=== PATIENT | female | born 1975 | race Two or more races ===

== ENCOUNTER 2023-04-23 08:38 | Outpatient (CLI) | payer BC ==
[2023-04-23] MEDS ORDERED: Iopamidol 300 61% 100 ML VIAL FS ONE (12:31)
== END 2023-04-23 08:39 | disposition home or self-care (01) ==
LOC: CSHCT 08:38
PROVIDERS: ATTEND Internal Medicine Critical Care Medicine
DX: G89.12 Acute post-thoracotomy pain (principal); J98.6 Disorders of diaphragm; J98.11 Atelectasis; J39.8 Other specified diseases of upper respiratory tract
CPT/HCPCS: 71260; Q9967